=== PATIENT | male | born 1935 | race Caucasian/White ===

== ENCOUNTER 2017-06-23 12:57 | Emergency (ER) | payer OTHER ==
[~2017-06-23] VITALS: Ht 177.8 cm; Wt 90.0 kg
[2017-06-23 15:06] LABS: HEMATOCRIT 38.7 % (38.0-50.0); MCH 30.6 PG (29.0-34.0); MCHC 33.6 G/DL (30.0-36.0); MCV 91.1 FL (86-99); MEAN PLAT.VOLUME 11.4 uM^3 (9.0-12.4); PLATELET COUNT 136 K/uL (156-360); RBC DIS.WIDTH-CV 12.6 % (11.8-14.6); RBC DIS.WIDTH-SD 41.4 % (39-53); RED BLOOD COUNT 4.25 M/uL (4.00-5.50); WHITE BLOOD COUNT 6.8 K/uL (4.1-10.2)
[2017-06-23 15:15] LABS: CHLORIDE 107 mEq/L (99-109); POTASSIUM 4.6 mEq/L (3.7-5.4); SODIUM 140 mEq/L (136-147)
[2017-06-23 15:17] LABS: GLUCOSE 108 mg/dL (70-99)
[2017-06-23 15:18] LABS: ANION GAP 10 MEQ/L (2-14)
[2017-06-23 15:21] LABS: GFR ESTIMATE (CALCULATED) 56 mL/min/
[2017-06-23 15:22] LABS: UREA NITROGEN (BUN) 18 mg/dL (9-23)
[2017-06-23 15:28] LABS: TROP-I INTERPRETATION NEGATIVE; TROPONIN-I 0.02 ng/mL (0.0-0.30)
[2017-06-23 16:47] VITALS: BP 178/85
== END 2017-06-23 16:48 | disposition home or self-care (01) ==
LOC: RME 12:57 → EME 12:57 → RME 16:48
PROVIDERS: Physician Assistant Medical
DX: I95.1 Orthostatic hypotension (principal); R55 Syncope and collapse; E86.0 Dehydration; I10 Essential (primary) hypertension; J45.909 Unspecified asthma, uncomplicated; K21.9 Gastro-esophageal reflux disease without esophagitis; Z87.891 Personal history of nicotine dependence
CPT/HCPCS: 71020; 80048; 81003; 84484; 85027; 93005; 99281; 99285; J7030